=== PATIENT | male | born 1945 | race Caucasian/White ===

== ENCOUNTER 2023-03-21 16:41 | Observation (INO) | payer OTHER, SELFPAY ==
--- NOTE | ~2023-03-21 | CT_ITS ---
EXAMINATION: CT SOFT TISSUE NECK WITHOUT CONTRAST CLINICAL INFORMATION: Upper cervical lymphadenopathy. COMPARISON: None available. TECHNIQUE: Multidetector helical imaging was performed in the axial plane without intravenous contrast. Multiple axial reformats and coronal/sagittal reconstructions were created the technologist workstation for review. This CT examination was performed using dose optimization techniques as appropriate, variously including the following: *Automated exposure control. *Adjustment of mA and/or kV according to patient size (this includes techniques or standardized protocols for targeted exams where dose is matched to indication/reason for exam; i.e. extremities or head). *Use of iterative reconstruction technique. DLP: 467 mGy-cm FINDINGS: No significant cutaneous thickening or subcutaneous inflammation. No discrete fluid collection within the deep tissues of the neck. The premaxillary, retromaxillary, pterygopalatine fossa, orbital apical, parapharyngeal, and prelaryngeal adipose tissue is maintained. Normal appearance of the parotid, submandibular, and thyroid glands. Scattered subcentimeter lymph nodes bilaterally, none of which are pathologically enlarged. No demonstrated focal lesion within the intrinsic tissues of the tongue or floor of mouth. Normal mucosal contours of the pharynx and larynx. Normal appearance of the hyoid bone, thyroid cartilage, or cartilaginous trachea. The airways remains widely patent. No radiopaque foreign bodies. Instrumented anterior fusion of C4-C6 with disc spacers in place. Changes of C3-C6 laminectomies. Ankylosis of the C3-C7 vertebrae. The atlantooccipital and atlantoaxial articulations remain well aligned. Moderate degenerative arthropathy of the atlantodental articulation. Straightening of the normal cervical lordosis. No evidence of acute fracture or subluxation of the cervical spine. The vertebral body heights are maintained. Advanced degenerative disc disease at all additional levels. Facet and uncovertebral joint arthropathy leads to osseous encroachment on the neural foramina from C2-T5. There is no prevertebral soft tissue swelling. The visualized portion of the skull base is without significant abnormalities. Mild mucosal thickening of the visualized paranasal sinuses. The mastoid air cells and middle ear cavities are clear. The patient is edentulous. Bilateral lens extractions. CT Upper Chest: Moderate centrilobular emphysema. Small volume layering mucus within the thoracic trachea. The remaining visualized lung apices and upper mediastinum are within normal limits. CT/CT soft tissue neck wo IV con IMPRESSION: 1. No demonstrated focal lesion, collection, lymphadenopathy, or inflammatory change within the soft tissues of the neck. 2. Advanced multilevel degenerative spondyloarthropathy of the cervical spine. Instrumented anterior fusion of C4-C6. Changes of C3-C6 laminectomies. Ankylosis of the C3-C7 vertebrae. 3. Emphysema.
[2023-03-21 16:52] VITALS: BP 107/82; BP 124/97; PULSE 85; PULSE 99; RESP 18; TEMP 36.4; O2SAT 97; BMI 23.3
--- NOTE | 2023-03-21 17:02 | ED.SYNCOPE ---
HPI - Syncope General Chief Complaint: Syncope Stated Complaint: SYNCOPAL EPISODE Time Seen by Provider: 03/21/23 16:58 Source: patient Mode of arrival: EMS Limitations: no limitations History of Present Illness HPI narrative: Patient history of atrial fibrillation, COPD not on any blood thinner was at her his friend's house sitting smoking marijuana friends went to bathroom when she came out found him blank semi responsive/staring had marijuana just prior to that patient does not remember what happened to him blood pressure on EMS arrival was 83/56 on arrival patient's blood pressure was 1249/97 pulse rate was 85 patient does have AFib and did not feel any palpitation this time no head injury no other injuries no seizure activity is noticed Related Data Home Medications Medication Instructions Recorded Confirmed Colace 100 mg PO 3XD 03/21/23 03/21/23 Vitamin C 500 mg PO 2XD 03/21/23 03/21/23 Vitamin D3 100 mg PO 1XD 03/21/23 03/21/23 aspirin 81 mg PO 1XD 03/21/23 03/21/23 atenolol 03/21/23 gabapentin 300 mg PO 2XD 03/21/23 03/21/23 levothyroxine 150 mg PO 1XD 03/21/23 03/21/23 Allergies Allergy/AdvReac Type Severity Reaction Status Date / Time No Known Allergies Allergy Verified 03/21/23 18:40 Review of Systems Review of Systems: Yes all other systems are reviewed and are negative [facility] Past Medical History Medical History Hypothyroidism Head trauma Prostate cancer Footdrop COPD (chronic obstructive pulmonary disease) Atrial fibrillation Surgical History Hx of cholecystectomy History of prostate surgery Hx of spinal surgery Social History Social History Alcohol intake: current Alcohol intake frequency: holidays/special occasions only Smoked in Last 30 Days: Yes Use of substances other than those prescribed or required for medical reasons: Yes Substance Use Type: Marijuana Last Used Substance: Just Prior to Admission Advance Directives: No Advance Directives Information Provided: Yes Physical Exam Vital Signs: Vital Signs: Last Vital Signs Temp 97.6 F 03/21/23 16:52 Pulse 98 03/22/23 00:49 Resp 18 03/21/23 16:52 BP 102/63 03/22/23 00:49 Pulse Ox 97 03/21/23 17:05 O2 Del Method Room Air 03/21/23 17:05 BMI result Body Mass Index 23.3 Appearance: Alert. Oriented X3. No acute distress. Eyes: PERRLA, No Nystagmus ENT: Pharynx normal. Oral Mucosa moist Neck: Normal inspection. Neck supple. 2 x 2 cm left upper cervical lymph node tender, tympanic membrane intact, mastoid nontender CVS: Irregularly irregular heart rate no murmur rub or gallop. Pulses normal. Respiratory: No respiratory distress. Equal air entry bilateral, no wheezing/rales/rhonchi Abdomen: Soft and nontender. Bowel sounds are present, no mass palpable, no CVA tenderness Skin: Skin warm and dry. Normal skin color. Normal skin turgor. Extremities: No lower extremity edema. No calf tenderness Neuro: Oriented X 3. Right footdrop, No sensory deficit.No cerebellar signs , cranial nerves II-XII intact Medications Administered Generic Name Dose Route Start Last Admin Trade Name Freq PRN Reason Stop Dose Admin Ascorbic Acid 500 mg 03/22/23 01:30 03/22/23 01:41 Ascorbic Acid 500 Mg Tablet PO 500 mg BID KENNETH Administration Docusate Sodium 100 mg 03/22/23 01:30 03/22/23 01:42 Docusate Sodium 100 Mg Capsule PO 100 mg TID KENNETH Administration Enoxaparin Sodium 40 mg 03/21/23 21:00 03/21/23 22:32 Enoxaparin Sodium 40 Mg/0.4 Ml Syringe SUBCUT 40 mg Q24H KENNETH Administration Gabapentin 300 mg 03/22/23 01:30 03/22/23 01:42 Gabapentin 300 Mg Capsule PO 300 mg BID KENNETH Administration Sodium Chloride 3 ml 03/22/23 00:00 03/22/23 01:45 0.9 % Sodium Chloride Flush 3 Ml Syringe IVFLUSH 3 ml QSHIFT KENNETH Administration Discontinued Medications Generic Name Dose Route Start Last Admin Trade Name Freq PRN Reason Stop Dose Admin Sodium Chloride 1,000 mls @ 999 mls/hr 03/21/23 17:26 03/21/23 18:40 Ns IV 03/21/23 18:26 Infused .Q1H1M ONE Infusion Medical Decision Making Medical Decision Making MDM Narrative: Patient's syncope episode/seizure with transient hypertension with history of atrial fibrillation will admit patient to rule out cardiac cause of syncope Differential Diagnosis Differential Diagnoses: The differential diagnosis associated with the presentation includes Cardiac arrhythmias/AFib/seizure/ACS/metabolic/seizure Admission/Observation Consideration of admission/observation: Escalation of care including admission/observation considered Consult Healthcare Provider Management of the patient was discussed with: Hospitalist Lab Data [facility] Lab Attestation statement: I reviewed the patient's lab results. 03/21/23 18:01 03/21/23 18:02 Labs: Lab Results 03/21/23 03/21/23 03/21/23 Range/Units 18:01 18:02 19:54 WBC 7.9 (4.8-10.8) X10*3/uL RBC 4.58 L (4.60-5.80) X10*6/uL Hgb 15.8 (14.0-18.0) g/dl Hct 45.3 (42.0-52.0) % MCV 98.9 H (80.0-98.0) fL MCH 34.5 H (27.0-33.0) pg MCHC 34.9 (31.0-36.0) g/dl RDW 12.9 (11.0-16.0) % Plt Count 222 (160-400) X10*3/uL MPV 9.1 L (9.4-12.4) fL Immature Gran % (Auto) 0.1 (0.0-0.4) % Neut % (Auto) 67.8 (45-73) % Lymph % (Auto) 20.5 (20-40) % [place] % (Auto) 7.1 (2-11) % Eos % (Auto) 3.5 (0-4) % Baso % (Auto) 1.0 (0-2) % Lymph # (Auto) 1.6 (1.2-4.9) X10*3/uL [place] # (Auto) 0.6 (0.1-1.2) X10*3/uL Eos # (Auto) 0.3 (0.0-0.4) X10*3/uL Baso # (Auto) 0.1 (0.0-0.2) X10*3/uL Abs Immat Gran (auto) 0.01 (0.00-0.03) X10*3/uL Absolute Neuts (auto) 5.4 (2.0-8.3) x10*3/uL Absolute Nucleated RBC 0.000 (0.0-0.012) X10*3/uL Nucleated RBC % (auto) 0.0 (0.0-0.2) /100WBC PT 13.7 H (11.1-13.3) SEC INR 1.1 (0.9-1.1) Sodium 138 (135-145) mmol/L Potassium 4.8 (3.3-5.1) mmol/L Chloride 106 (96-108) mmol/L Carbon Dioxide 26 (22-29) mmol/L Anion Gap 11 L (12-20) BUN 13 (9-16) mg/dL Creatinine 0.90 (0.5-1.4) mg/dL Estim Creat Clear Calc 68.6 Estimated GFR > 60 Random Glucose 103 (60-115) mg/dL Calcium 9.8 (8.4-10.2) mg/dL Magnesium 2.0 (1.6-2.6) mg/dL Total Bilirubin 0.5 (0.0-1.0) mg/dL AST 18 (5-37) U/L ALT 10 (0-40) U/L Alkaline Phosphatase 63 (39-117) U/L Troponin I High Sens < 2.7 (<3.5-35.0) ng/L Total Protein 6.7 (6.5-8.0) g/dL Albumin 3.9 (3.5-5.0) g/dL COVID-19 (PATRICIA) Negative (Negative) COVID-19 Clin Com See Note Independent Interpretation I performed an independent interpretation of an: EKG Interpretation: Atrial fibrillation with ventricular rate 72 beats per minute no acute ischemia no acute ST T wave changes Radiology Impression Discussion of test interpretation with radiology: I have reviewed the radiologist's reading. Discharge Plan Discharge Clinical Impression: Unresponsive episode Patient Disposition: Admitted As Inpatient
[2023-03-21 17:05] VITALS: O2SAT 97
--- NOTE | 2023-03-21 17:27 | ECG_ITS ---
Test Reason : SYCONPE Blood Pressure : / mmHG Vent. Rate : 072 BPM Atrial Rate : 000 BPM P-R Int : 000 ms QRS Dur : 074 ms QT Int : 368 ms P-R-T Axes : 000 069 044 degrees QTc Int : 402 ms Atrial fibrillation Abnormal ECG No previous ECGs available Referred By: Hans Roblero Electronically Signed By:BLAYNE GORDON
[2023-03-21] MEDS: 0.9 % Sodium Chloride 1,000 ML 999 ML IV (17:40)
[2023-03-21 18:06] LABS: MANUAL DIFF FLAG NO
[2023-03-21 18:09] LABS: Basophils Absolute Auto 0.1 X10*3/uL (0.0-0.2); Eosinophils Absolute Auto 0.3 X10*3/uL (0.0-0.4); Eosinophils Percent Auto 3.5 % (0-4); Hematocrit 45.3 % (42.0-52.0); Hemoglobin 15.8 g/dl (14.0-18.0); Imm Gran Abs Auto 0.01 X10*3/uL (0.00-0.03); Imm Gran Pct Auto 0.1 % (0.0-0.4); Lymphocytes Absolute Auto 1.6 X10*3/uL (1.2-4.9); Lymphocytes Percent Auto 20.5 % (20-40); Mean Corpuscular HGB Conc 34.9 g/dl (31.0-36.0); Mean Corpuscular Hemoglobin 34.5 pg (27.0-33.0); Mean Corpuscular Volume 98.9 fL (80.0-98.0); Mean Platelet Volume 9.1 fL (9.4-12.4); Monocytes Absolute Auto 0.6 X10*3/uL (0.1-1.2); Monocytes Percent Auto 7.1 % (2-11); Neutrophils Absolute Auto 5.4 x10*3/uL (2.0-8.3); Neutrophils Percent Auto 67.8 % (45-73); Platelet Count 222 X10*3/uL (160-400); Red Blood Count 4.58 X10*6/uL (4.60-5.80); Red Cell Distribution Width 12.9 % (11.0-16.0); White Blood Count 7.9 X10*3/uL (4.8-10.8)
[2023-03-21 18:40] LABS: Alanine Aminotransferase 10 U/L (0-40); Albumin Level 3.9 g/dL (3.5-5.0); Alkaline Phosphatase 63 U/L (39-117); Anion Gap 11 (12-20); Aspartate Amino Transferase 18 U/L (5-37); Bilirubin Total 0.5 mg/dL (0.0-1.0); Blood Urea Nitrogen 13 mg/dL (9-16); Calcium 9.8 mg/dL (8.4-10.2); Carbon Dioxide 26 mmol/L (22-29); Chloride 106 mmol/L (96-108); Creatinine Clr Calc Pharmacy 68.6; Estimated Glomerular Filt Rate > 60; Glucose Random 103 mg/dL (60-115); Potassium 4.8 mmol/L (3.3-5.1); Sodium 138 mmol/L (135-145); Total Protein 6.7 g/dL (6.5-8.0)
[2023-03-21 18:44] LABS: Troponin-I High Sensitivity < 2.7 ng/L (<3.5-35.0)
--- NOTE | 2023-03-21 18:45 | PC.NURSE ---
Josue- Daughter [phone]
[2023-03-21 18:51] VITALS: BP 120/87; PULSE 76
[2023-03-21 18:52] VITALS: BP 121/42; BP 130/76; PULSE 85; PULSE 88
--- NOTE | 2023-03-21 18:59 | PC.NURSE ---
This RN took over this assignment @ [phone]
[2023-03-21 19:15] LABS: INTERNATIONAL NORM RATIO 1.1 (0.9-1.1); Prothrombin Time 13.7 SEC (11.1-13.3)
--- NOTE | 2023-03-21 19:21 | PC.NURSE ---
Pt ca&ox4, no signs of distress. Plan of care ongoing.
--- NOTE | 2023-03-21 20:02 | PM.IMHP ---
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 Apparently, they had been smoking marijuana, he reports taking 3 hits. He reports smoking marijuana very infrequently. Upon discussion with his friend, she went to the bathroom and upon returning, patient was found sitting in a chair staring and was minimally responsive. She did notice some pallor, dusky colored lips. She did try to shake her friend waking was unable to do so so called EMS. On arrival, EMS noted BP to be 83/56, HR 85. Given IVF. The patient does not recall any of this. He recalls talking with his friend, and taking 3 hits of marijuana. He then remembers EMS being present. He denies any visual changes, lightheadedness, near-syncope, syncope, shortness of breath, palpitations, or chest pain. He has also noted increased painful swelling at the lower mandible/neck has increased in size over the last week. He has noted some increased elevation as well.. On arrival, vital stable. No hypotension or hypoxia. Hematology studies without significant finding. Renal function electrolyte levels normal. Hepatic function normal. Troponin below detectable limits. Negative for COVID-19. Soft tissue neck CT pending. In the ED received 1 L IVF. Review of Systems Review of Systems: General: No fevers, malaise, unintentional weight loss HEENT: No blurred vision, diplopia. Cardiovascular: No chest pain, palpitations, or leg edema Respiratory: No shortness of breath, wheezing, cough GI: No abdominal pain, nausea, vomiting, diarrhea, constipation, melena, hematochezia : No dysuria, hematuria, increased urinary frequency, decreased urinary output Neuro: No headaches, weakness, paresthesias. +unresponsiveness Skin: No rashes or lesions [facility] Medical History Hypothyroidism Head trauma Prostate cancer Footdrop COPD (chronic obstructive pulmonary disease) Atrial fibrillation Surgical History Hx of cholecystectomy History of prostate surgery Hx of spinal surgery Social History Alcohol intake: current Alcohol intake frequency: holidays/special occasions only Smoked in Last 30 Days: Yes Use of substances other than those prescribed or required for medical reasons: Yes Substance Use Type: Marijuana Last Used Substance: Just Prior to Admission Advance Directives: No Advance Directives Information Provided: Yes Meds Allergies Allergy/AdvReac Type Severity Reaction Status Date / Time No Known Allergies Allergy Verified 03/21/23 18:40 Physical Exam Vital Signs and Narrative: Vital Signs: Last Vital Signs Temp 97.6 F 03/21/23 16:52 Pulse 88 03/21/23 18:52 Resp 18 03/21/23 16:52 BP 130/76 03/21/23 18:52 Pulse Ox 97 03/21/23 17:05 O2 Del Method Room Air 03/21/23 17:05 BMI result Body Mass Index 23.3 Constitutional - Awake and Alert, No apparent distress Eyes - PERRLA, EOMI Cardiovascular - S1S2, RRR, No edema Respiratory - Normal lung expansion, Normal respiratory effort, No respiratory distress, CTA bilaterally Gastrointestinal - NT / ND; +BS; No rebound or guarding Extremities - no calf tenderness bilaterally, no swelling Skin - Warm/Dry Neurological - Alert & oriented x3, CN II-XII in tact, 5/5 strength BUE and LLE, 3/5 strength RLE Psychological - Appropriate affect Results Labs 03/21/23 18:01 03/21/23 18:02 Labs: Laboratory Results - last 24 hr 03/21/23 03/21/23 18:01 18:02 MCV 98.9 H MCH 34.5 H MCHC 34.9 RDW 12.9 Plt Count 222 MPV 9.1 L Immature Gran % (Auto) 0.1 Neut % (Auto) 67.8 Lymph % (Auto) 20.5 [place] % (Auto) 7.1 Eos % (Auto) 3.5 Baso % (Auto) 1.0 Lymph # (Auto) 1.6 [place] # (Auto) 0.6 Eos # (Auto) 0.3 Baso # (Auto) 0.1 Abs Immat Gran (auto) 0.01 Absolute Neuts (auto) 5.4 Absolute Nucleated RBC 0.000 Nucleated RBC % (auto) 0.0 PT 13.7 H INR 1.1 Anion Gap 11 L Estim Creat Clear Calc 68.6 Estimated GFR > 60 Random Glucose 103 Calcium 9.8 Magnesium 2.0 Total Bilirubin 0.5 AST 18 ALT 10 Alkaline Phosphatase 63 Total Protein 6.7 Albumin 3.9 Assessment and Plan (1) Unresponsive episode: Status: Acute Plan 77 year old healthy that him now with history of paroxysmal atrial fibrillation not on anticoagulation, COPD, hypothyroidism, history of prostate cancer s/p prostatectomy, 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 Cannabis induced orthostatic hypotension though question accuracy of orthostatic vital signs -Received 1L IVF in ED, repeat orthostatic VS am # paroxysmal atrial fibrillation -not on anticoagulation, continue aspirin -continue atenolol # COPD -no acute exacerbation -continue home meds # hypothyroidism -continue Synthroid # left neck mass -CT soft tissue neck pending DVT prophylaxis-Lovenox Full code Time Spent With Patient Time: Total time managing care of this patient today ____ minutes. Quality Stroke Does the patient have a stroke diagnosis?: No VTE Prior VTE?: No VTE Risk Level:: Medical - moderate - high VTE Device Contraindication: Treatment Not Indicated VTE Drug Contraindication: N/A - Med Ordered
[2023-03-21 20:11] LABS: COVID-19 Test Negative (Negative); IDNOW Serial# BCCEAD1C
--- NOTE | 2023-03-21 20:14 | PC.NURSE ---
This RN spoke with the hospitalist regarding pt. Hospitalist to come down and speak with pt. Plan of care ongoing.
--- NOTE | 2023-03-21 22:19 | PC.NURSE ---
Pt reports his home meds are.. Gabapentin 300mg Atenolol - could not remember the dose but takes it in the am. Colace 100mg. Vit D3 - 100mg Vit C - 500mg Aspirin - 81mg Levothyroxine - 150 mg. Med rec completed.
[2023-03-21] MEDS: Enoxaparin Sodium 40 MG/0.4 ML SYRINGE SUBCUT (22:32)
--- NOTE | 2023-03-21 22:35 | PC.NURSE ---
Pt medicated per mar. Pt states I dont even know why im being admitted. This makes no sense to me. This RN explained to the pt why he is being admitted. Pt agitated but redirectable. Plan of care ongoing.
--- NOTE | 2023-03-21 22:48 | PC.NURSE ---
Pt unable to provide urine.
[2023-03-22] VITALS (8 sets, daily range): BP systolic 101–128; BP diastolic 58–92; PULSE 65–98; RESP 18–23; TEMP 36.6–36.7; O2SAT 97–98
--- NOTE | 2023-03-22 01:29 | PC.NURSE ---
This RN sent Dr Muñiz a message regarding the pts night meds. Dr. Muñiz requested this RN speak with Pharmacy. This RN spoke with Evert at pharmacy. Per Evert will put in a dose for tonight. Plan of care ongoing.
[2023-03-22] MEDS: Ascorbic Acid 500 MG TABLET PO ×2 (01:41→08:19)
[2023-03-22] MEDS: Gabapentin 300 MG CAPSULE PO ×2 (01:42→08:19)
[2023-03-22] MEDS: Docusate Sodium 100 MG CAPSULE PO ×2 (01:42→08:19)
[2023-03-22] MEDS: 0.9 % Sodium Chloride Flush 3 ML SYRINGE IVFLUSH ×2 (01:45→08:19)
--- NOTE | 2023-03-22 01:48 | PC.NURSE ---
Pt medicated per sep. Pt threw pill cup after taking meds, angry about his night meds and the fact that he needs to stay in the hospital for observation. Plan of care ongoing.
--- NOTE | 2023-03-22 01:51 | PC.NURSE ---
Pt unable to verify correct doses of meds that are pending.
--- NOTE | 2023-03-22 01:53 | PC.NURSE ---
This RN spke with Evert at the pharmacy. This RN explained pt was unable to verify dose of meds. Per Evert from pharmacy, pharmacy will come in, in the am and call his pharmacy to verify the dose. Plan of care ongoing.
--- NOTE | 2023-03-22 02:37 | PC.NURSE ---
UA collected and sent. Plan of care ongoing.
[2023-03-22 02:47] LABS: Appearance Urine Clear; Color Urine Dark Yellow; Glucose Urine UA Negative (Negative); Leukocyte Esterase Urine Negative (Negative); Nitrite Urine Negative (Negative); Specific Gravity - Urine 1.025 (1.005-1.025); Urine Blood Negative (Negative); Urine Ketones Trace mg/dL (Negative); Urine Protein Trace mg/dL (Neg-Trace)
[2023-03-22 03:01] LABS: Amphetamine Screen Urine Not Detected (Not Detect); Barbiturates, Urine Not Detected (Not Detect); Benzodiazepines Screen Urine Not Detected (Not Detect); Cannabinoid Screen Urine POSITIVE (Not Detect); Cocaine Screen Urine Not Detected (Not Detect); Opiate Screen Urine Not Detected (Not Detect); Phencyclidine Screen Urine Not Detected (Not Detect)
[2023-03-22 03:10] LABS: Fentanyl, urine Not Detected (Not Detect)
--- NOTE | 2023-03-22 03:26 | MHC.EDTECH ---
This tech assumed care of patient at 0300AM, hourly rounds and vitals completed. This tech offered patient a hospital bed for comfort and to take jeans and shoes off patient refused and stated No I'm getting out of here this morning This tech insisted he would be more comfortable and he stated NO . Patient urinated 100cc in urinal. Call pruitt within reach
[2023-03-22 05:12] LABS: MANUAL DIFF FLAG NO
[2023-03-22 05:15] LABS: Basophils Absolute Auto 0.1 X10*3/uL (0.0-0.2); Basophils Percent Auto 1.2 % (0-2); Eosinophils Absolute Auto 0.3 X10*3/uL (0.0-0.4); Eosinophils Percent Auto 5.1 % (0-4); Hematocrit 40.4 % (42.0-52.0); Hemoglobin 14.3 g/dl (14.0-18.0); Imm Gran Abs Auto 0.02 X10*3/uL (0.00-0.03); Imm Gran Pct Auto 0.3 % (0.0-0.4); Lymphocytes Absolute Auto 2.6 X10*3/uL (1.2-4.9); Lymphocytes Percent Auto 38.8 % (20-40); Mean Corpuscular HGB Conc 35.4 g/dl (31.0-36.0); Mean Corpuscular Hemoglobin 34.9 pg (27.0-33.0); Mean Corpuscular Volume 98.5 fL (80.0-98.0); Mean Platelet Volume 9.3 fL (9.4-12.4); Monocytes Absolute Auto 0.6 X10*3/uL (0.1-1.2); Monocytes Percent Auto 8.6 % (2-11); Neutrophils Absolute Auto 3.1 x10*3/uL (2.0-8.3); Platelet Count 209 X10*3/uL (160-400); White Blood Count 6.7 X10*3/uL (4.8-10.8)
[2023-03-22 05:29] LABS: Anion Gap 10 (12-20); Blood Urea Nitrogen 14 mg/dL (9-16); Calcium 8.7 mg/dL (8.4-10.2); Carbon Dioxide 24 mmol/L (22-29); Chloride 109 mmol/L (96-108); Creatinine Clr Calc Pharmacy 72.6; Estimated Glomerular Filt Rate > 60; Glucose Random 88 mg/dL (60-115); Potassium 4.2 mmol/L (3.3-5.1); Sodium 139 mmol/L (135-145)
--- NOTE | 2023-03-22 05:43 | PC.NURSE ---
Pt reported after med rec done that he takes 600mg of gabapentin 2x daily. Change reflected in home meds.
--- NOTE | 2023-03-22 06:04 | MHC.EDTECH ---
Hourly rounds and Orthostatic vitals completed.Call pruitt within reach
--- NOTE | 2023-03-22 06:58 | PC.NURSE ---
Handoff Report given to oncoming RN.
--- NOTE | 2023-03-22 07:25 | PC.NURSE ---
pt a&ox3. respirations even and unlabored. pt denies pain at this time. pt reports wanting to leave stating i dont belong here . pt laying comfortably in bed.
[2023-03-22] MEDS: Aspirin 81 MG TAB.CHEW PO (08:19)
--- NOTE | 2023-03-22 09:35 | PC.NURSE ---
Kenna NET DEVELOPMENT MANAGER at bedside discussing pt plan to IFEANYI.
--- NOTE | 2023-03-22 09:38 | PHA.MEDREC ---
Pharmacy Consult ? Medication Reconciliation Pharmacy has completed the medication reconciliation. Contacted MA for medication list; patient stated he takes 600mg gabapentin twice daily and 300mg at noon. Says he uses an enema daily not as needed.
--- NOTE | 2023-03-22 09:53 | PM.DS ---
DS: Providers Provider Date of Service: 03/22/23 Date of admission: 03/21/23 19:56 Primary care physician: Unknown Physician Consults: 03/21/23 19:59 Consult to Neurology Routine Consulting Provider: [facility] Reason for consultation: ?absence seizure DS: Diagnosis Discharge Diagnosis (1) Unresponsive episode: Status: Acute DS: Summary Hospital Course Hospital Course: History and physical as per admitting provider. 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 Apparently, they had been smoking marijuana, he reports taking 3 hits. He reports smoking marijuana very infrequently. Upon discussion with his friend, she went to the bathroom and upon returning, patient was found sitting in a chair staring and was minimally responsive. She did notice some pallor, dusky colored lips. She did try to shake her friend waking was unable to do so so called EMS. On arrival, EMS noted BP to be 83/56, HR 85. Given IVF. The patient does not recall any of this. He recalls talking with his friend, and taking 3 hits of marijuana. He then remembers EMS being present. He denies any visual changes, lightheadedness, near-syncope, syncope, shortness of breath, palpitations, or chest pain. He has also noted increased painful swelling at the lower mandible/neck has increased in size over the last week. He has noted some increased elevation as well..On arrival, vital stable. No hypotension or hypoxia. Hematology studies without significant finding. Renal function electrolyte levels normal. Hepatic function normal. Troponin below detectable limits. Negative for COVID-19. Soft tissue neck CT pending. In the ED received 1 L IVF. 77-year-old patient admitted for possible absence seizure. He reported that he was smoking marijuana and staring out the window. Unfortunately patient reports that he wants to leave against medical advice without completing treatment, the plan was to obtain an EEG and neurology consultation. Patient is alert and oriented x3 and declines to stay and continue treatment. He is aware that at this point we do not know what his actual diagnosis is and he could have a recurrence of the unresponsive episode and can get worse. He is aware of that still wants to leave against medical advice Time Spent with Patient Time attestation: Total time managing care of this patient today ____ minutes. Discharge coordination time: Greater than 30 minutes Quality: Safe Use of Opioids Does Pt have an Active Cancer Diagnosis on the Problem List?: No Quality: Stroke Does the patient have a stroke diagnosis?: No Physical Exam Vital Signs: Vital Signs: Last Vital Signs Temp 97.8 F 03/22/23 07:31 Pulse 73 03/22/23 07:31 Resp 23 H 03/22/23 07:31 BP 126/72 03/22/23 07:31 Pulse Ox 98 03/22/23 07:31 O2 Del Method Room Air 03/22/23 07:31 BMI result Body Mass Index 23.3 Left against medical advice DS: Data Data Completed and Pending Labs on day of discharge: Laboratory Results - last 24 hr 03/21/23 03/21/23 03/21/23 18:01 18:02 19:54 WBC 7.9 RBC 4.58 L Hgb 15.8 Hct 45.3 MCV 98.9 H MCH 34.5 H MCHC 34.9 RDW 12.9 Plt Count 222 MPV 9.1 L Immature Gran % (Auto) 0.1 Neut % (Auto) 67.8 Lymph % (Auto) 20.5 Whitman % (Auto) 7.1 Eos % (Auto) 3.5 Baso % (Auto) 1.0 Lymph # (Auto) 1.6 Whitman # (Auto) 0.6 Eos # (Auto) 0.3 Baso # (Auto) 0.1 Abs Immat Gran (auto) 0.01 Absolute Neuts (auto) 5.4 Absolute Nucleated RBC 0.000 Nucleated RBC % (auto) 0.0 PT 13.7 H INR 1.1 Sodium 138 Potassium 4.8 Chloride 106 Carbon Dioxide 26 Anion Gap 11 L BUN 13 Creatinine 0.90 Estim Creat Clear Calc 68.6 Estimated GFR > 60 Random Glucose 103 Calcium 9.8 Magnesium 2.0 Total Bilirubin 0.5 AST 18 ALT 10 Alkaline Phosphatase 63 Troponin I High Sens < 2.7 Total Protein 6.7 Albumin 3.9 Urine Color Urine Appearance Urine pH Ur Specific [place] Urine Protein Urine Glucose (UA) Urine Ketones Urine Blood Urine Nitrite Ur Leukocyte Esterase Urine Opiates Screen Urine Fentanyl Screen Ur Barbiturates Screen Ur Phencyclidine Scrn Ur Amphetamines Screen U Benzodiazepines Scrn Urine Cocaine Screen U Marijuana (THC) Screen COVID-19 (PATRICIA) Negative COVID-19 Clin Com See Note 03/22/23 03/22/23 03/22/23 02:32 04:52 19:34 WBC 6.7 RBC 4.10 L Hgb 14.3 Hct 40.4 L MCV 98.5 H MCH 34.9 H MCHC 35.4 RDW 13.0 Plt Count 209 MPV 9.3 L Immature Gran % (Auto) 0.3 Neut % (Auto) 46.0 Lymph % (Auto) 38.8 Whitman % (Auto) 8.6 Eos % (Auto) 5.1 H Baso % (Auto) 1.2 Lymph # (Auto) 2.6 Whitman # (Auto) 0.6 Eos # (Auto) 0.3 Baso # (Auto) 0.1 Abs Immat Gran (auto) 0.02 Absolute Neuts (auto) 3.1 Absolute Nucleated RBC 0.000 Nucleated RBC % (auto) 0.0 PT INR Sodium 139 Potassium 4.2 Chloride 109 H Carbon Dioxide 24 Anion Gap 10 L BUN 14 Creatinine 0.85 Estim Creat Clear Calc 72.6 Estimated GFR > 60 Random Glucose 88 Calcium 8.7 D Magnesium Total Bilirubin AST ALT Alkaline Phosphatase Troponin I High Sens Total Protein Albumin Urine Color Dark Yellow Urine Appearance Clear Urine pH 6.0 Ur Specific [place] 1.025 Urine Protein Trace Urine Glucose (UA) Negative Urine Ketones Trace Urine Blood Negative Urine Nitrite Negative Ur Leukocyte Esterase Negative Urine Opiates Screen Not Detected Urine Fentanyl Screen Not Detected Ur Barbiturates Screen Not Detected Ur Phencyclidine Scrn Not Detected Ur Amphetamines Screen Not Detected U Benzodiazepines Scrn Not Detected Urine Cocaine Screen Not Detected U Marijuana (THC) Screen POSITIVE H COVID-19 (PATRICIA) COVID-19 Clin Com Discharge Plan Discharge Anticipated Discharge Date/Time: 03/22/23 09:51 Patient Disposition: Left Against Medical Advice Discharge Diagnosis: Unresponsive episode Discharge Medications: No Action multivitamin Tablet 1 tab PO DAILY gabapentin 600 mg Tablet 600 mg PO BID atenolol 25 mg Tablet 25 mg PO DAILY melatonin 3 mg Tablet 9 mg PO BEDTIME PRN (Reason: Sleep) aspirin 81 mg Tablet,Delayed Release (Dr/Ec) 81 mg PO DAILY levothyroxine 25 mcg Tablet 150 mcg PO MOTUWETHFRSA@0600 levothyroxine 25 mcg Tablet 175 mcg PO ROGERS@0600 ascorbic acid (vitamin C) 500 mg Tablet 500 mg PO BID Fleet Enema 19-7 gram/118 mL Enema 118 ml VT DAILY docusate sodium 100 mg Capsule 100 mg PO TID gabapentin 300 mg Capsule 300 mg PO DAILY@1200 ketoconazole 2 % Cream 1 appl TOPICAL BID PRN (Reason: flare ups) Rx Instructions: to feet/ankles until clear of flare up fluticasone propionate 50 mcg/actuation [place],Suspension 1 spray INTRANASAL BID PRN (Reason: Inflammation) Rx Instructions: administer into each nostril cholecalciferol (vitamin D3) 50 mcg (2,000 unit) Capsule 50 mcg PO DAILY Stiolto Respimat 2.5-2.5 mcg/actuation Mist 2 puff INHALATION DAILY Discharge Orders: Discharge Order (Routine); Ordered 03/22/23 Ordered By: Kenna Mendoza Diet: Advance to usual diet Activity on Discharge: As tolerated Care Plan Goals: Leaving against medical advice Health Concerns: Unresponsive episode Plan of Treatment: Follow-up with primary care provider Patient leaving against medical advice Assessment: See discharge summary
--- NOTE | 2023-03-22 10:23 | PC.NURSE ---
Angelica working on getting pt an uber ride home.
--- NOTE | 2023-03-22 15:12 | MHC.CM.PN ---
Attempted to meet w/pt to complete CM assessment: pt states he is leaving AMA and just wants to go home. Requesting transportation. [employer] arranged : pt taken to ED lobby : confirmation of [employer] p/u.
== END 2023-03-22 10:14 | disposition left against medical advice (07) ==
LOC: HO.ED 17:46 → HO.EDOVER 20:05 → HO.IMC 03-22 09:39
PROVIDERS: Admitting Provider Physician Assistant; Emergency Provider Internal Medicine; Visit Provider Nurse Practitioner Acute Care
DX: R40.4 Transient alteration of awareness (principal); I48.91 Unspecified atrial fibrillation; J44.9 Chronic obstructive pulmonary disease, unspecified; E03.9 Hypothyroidism, unspecified; Z85.46 Personal history of malignant neoplasm of prostate; R22.1 Localized swelling, mass and lump, neck; I95.9 Hypotension, unspecified; Z79.899 Other long term (current) drug therapy; Z20.822 Contact with and (suspected) exposure to COVID-19
CPT/HCPCS: 36415; 70490; 80048; 80053; 80307; 81003; 83735; 84484; 85025; 85610; 87635; 93005; 96360; 96372; 99222; 99285; J1650

== ENCOUNTER → 2023-03-21 19:56 | Outpatient (BNV) | payer OTHER, SELFPAY | PROVIDERS: Admitting Provider Physician Assistant; Emergency Provider Internal Medicine; Visit Provider Physician Assistant | DX: R40.4 Transient alteration of awareness (principal) | CPT/HCPCS: 99223; 99239 ==